=== PATIENT | male | born 1960 | race Two or more races ===

== ENCOUNTER 2022-03-14 01:14 | Emergency (ER) | payer BC ==
[~2022-03-14] VITALS: Ht 188 cm; Wt 93.0 kg
[2022-03-14 01:52] VITALS: BP 108/68
== END 2022-03-14 06:55 | disposition left against medical advice (07) ==
LOC: ER 01:14
DX: M79.605 Pain in left leg (principal); Z53.21 Procedure and treatment not carried out due to patient leaving prior to being seen by health care provider